=== PATIENT | female | born 1955 | race Caucasian/White ===

== ENCOUNTER 2017-02-09 10:07 | Outpatient (CLI) | payer MEDICARE | END 2017-02-09 11:05 | LOC: D.MAMMO 10:07 | DX: Z12.31 Encounter for screening mammogram for malignant neoplasm of breast (principal) ==

== ENCOUNTER 2020-05-22 05:25 | Day surgery (SDC) | payer MEDICARE, MEDICAID ==
[2020-05-20 10:35] LABS: BASOPHILS 0.1 % (0-2); EOSINOPHILS 3.1 % (0-7); HEMATOCRIT 40.2 % (36.0-48.0); IMMATURE GRANULOCYTES 0.3 % (0-5); LYMPHOCYTES 22.9 % (15-50); MCH 30.9 pg (26.0-34.0); MCHC 32.3 g/dL (31.0-37.0); MCV 95.5 fL (80.0-100.0); MEAN PLATELET VOLUME 10.2 fL (7.4-10.4); NEUTROPHILS 65.6 % (40-80); PLATELET COUNT 284 10x3/uL (130-400); RBC 4.21 10x6/uL (4.00-5.40); RDW 15.1 % (11.5-14.5); WBC 6.9 10x3/uL (4.8-10.8)
[2020-05-20 10:54] LABS: CALC OSMOLALITY 279 mosm/kg (275-300); CALCIUM 8.9 mg/dL (8.5-10.1); CHLORIDE - SERUM 102 mmol/L (98-107); CREATININE - SERUM 0.8 mg/dL (0.6-1.3); GLUCOSE 96 mg/dL (74-106); POTASSIUM - SERUM 3.7 mmol/L (3.5-5.1); SODIUM 140 mmol/L (136-145); UREA NITROGEN 15 mg/dL (7-18); eGFR NON AFRICAN AMERICAN 76 mL/min (90-120)
[~2020-05-22] VITALS: Ht 147.3 cm; Wt 76.7 kg
[~2020-05-22 05:25] MED LIST: CYCLOBENZAPRINE10 MG PO; HYDROCHLOROTHIA25 MG PO; IBUPROFEN800 MG PO; KLONOPIN1 MG PO; LOPRESSOR25 MG PO; PROTONIX40 MG PO; PROZAC20 MG PO; SEROQUEL25 MG PO; ZETIA10 MG PO
[2020-05-22 05:56] VITALS: BP 121/74; Ht 147.3 cm; Wt 76.7 kg
--- NOTE | 2020-05-22 11:38 | NUR ---
[address] SKELTON VIA PHONE TO HAVE HER QUESTIONS ANSWERED. IV D/C'D WITH CANNULA INTACT, PRESSSURE HELD AND DRSG PLACED.DISCHARGE INSTRUCTIONS GIVEN AND PT VERBALIZED AN UNDERSTANDING. REPORTS PAIN NOW 10/14. DISCHARGED HOME IN STABLE CONDITION AND WITHOUT COMPLAINT
--- NOTE | 2020-05-25 07:04 | OP ---
PATIENT NAME: MIGUELANGEL PATE MEDICAL RECORD: [id number] :55 LOCATION:[facility] ADMISSION DATE: SURGEON: AJ CORRAL MD DATE OF OPERATION: 05/22/2020 PREOPERATIVE DIAGNOSIS: Endometrial thickening. POSTOPERATIVE DIAGNOSES: 1. Endometrial thickening. 2. Grossly atrophic-appearing endometrial cavity with possible questionable Asherman syndrome at the fundus. SURGEON: Aj Corral MD ANESTHESIA: General endotracheal. PROCEDURE: Hysteroscopy, dilation and curettage. SPECIMENS: Endometrial curettings. COMPLICATIONS: None apparent. ESTIMATED BLOOD LOSS: Minimal. DESCRIPTION OF PROCEDURE: The patient was taken to the operating room where general anesthesia was achieved without any difficulty. The patient was then prepped and draped in normal sterile fashion in the dorsal lithotomy position in the [facility]. The bladder was drained of approximately 200 mL of clear yellow urine. A Graves speculum was placed into the vagina. The cervix was grasped on its anterior lip with a single-tooth tenaculum and the patient was dilated to approximately 6 mm. At this point, the hysteroscope was placed into the cervix. Survey of the endocervix and endometrial canal was performed. At the superior aspect of the fundus, there was a dense-appearing scar-type tissue resembling a possible Asherman syndrome or previous resected septum. Following survey of the endometrium, the hysteroscope was then removed and #1 curette was used to perform fractional curettage of all 4 quadrants. The tenaculum was then removed as well as the speculum. The patient tolerated the procedure well and was transferred to postanesthesia recovery stable without incident. NTS:[id number] Voice Confirmation ID: [id number] DOCUMENT ID: [id number] AJ CORRAL MD at [id number] CC: [id number] DICTATION DATE: 05/22/20 1109 ACADEMIC ADVISER: 05/22/202038 [facility] [place], [place] 05/22/20 [id number] [place] [address]
== END 2020-05-22 10:25 | disposition home or self-care (01) ==
LOC: D.OPS 05:25 → D.PAN 07:30 → D.OPS 07:30 → D.PAN 08:00 → D.OPS 08:00 → D.PAN 08:30 → D.OPS 10:25
PROVIDERS: ATTEND Obstetrics & Gynecology
DX: R93.89 Abnormal findings on diagnostic imaging of other specified body structures (principal); R10.2 Pelvic and perineal pain; N85.00 Endometrial hyperplasia, unspecified